=== PATIENT | male | born 1980 | race Caucasian/White ===

== ENCOUNTER 2017-11-26 14:06 | Emergency (ER) | payer MEDICAID ==
[~2017-11-26] VITALS: Ht 175.3 cm; Wt 74.8 kg
[2017-11-26 15:59] VITALS: BP 115/87
== END 2017-11-26 15:59 | disposition home or self-care (01) ==
LOC: ER 14:08
DX: J18.9 Pneumonia, unspecified organism (principal); F10.10 Alcohol abuse, uncomplicated; F17.210 Nicotine dependence, cigarettes, uncomplicated
CPT/HCPCS: 71020; 99284; A4606; Z7610

== ENCOUNTER 2019-10-05 14:50 | Emergency (ER) | payer MEDICAID ==
[~2019-10-05] VITALS: Ht 177.8 cm; Wt 80.7 kg
[2019-10-05 14:56] VITALS: BP 140/74
== END 2019-10-05 15:22 | disposition home or self-care (01) ==
LOC: ER 14:55
DX: S01.112A Laceration without foreign body of left eyelid and periocular area, initial encounter (principal); F17.200 Nicotine dependence, unspecified, uncomplicated; X58.XXXA Exposure to other specified factors, initial encounter; Y93.89 Activity, other specified; Y92.89 Other specified places as the place of occurrence of the external cause; Y99.8 Other external cause status